=== PATIENT | female | born 1980 | race Caucasian/White ===

== ENCOUNTER 2021-05-24 03:25 | Emergency (ER) | payer SELFPAY ==
[~2021-05-24] VITALS: Ht 170.2 cm; Wt 136.1 kg
[2021-05-24] MEDS ORDERED: TETRACAINE HCL 0.5% OPTH SOLN 4 ML BTL OP ONE (04:30)
[2021-05-24] MEDS ORDERED: ONDANSETRON HCL 4 MG ORAL DISINTEGRATING TAB PO ONE (04:30)
[2021-05-24] MEDS ORDERED: FLUORESCEIN SOD(OPTH) 1 MG STRP OP ONE (04:30)
[2021-05-24] MEDS ORDERED: TETRACAINE HCL 0.5% OPTH SOLN 4 ML BTL ONE ×2 (04:39)
[2021-05-24] MEDS ORDERED: FLUORESCEIN SOD(OPTH) 1 MG STRP ONE (04:40)
[2021-05-24] MEDS ORDERED: ONDANSETRON HCL 4 MG ORAL DISINTEGRATING TAB ONE (04:41)
[2021-05-24] MEDS ORDERED: TOBRAMYCIN/DEXAMETHASONE(OPTH) 3.5 GM TUBE OP ONE (04:45)
[2021-05-24] MEDS ORDERED: HYDROCODONE/APAP 10MG-325MG TAB PO ONE (04:45)
[2021-05-24] MEDS ORDERED: TOBRAMYCIN 0.3% OPTH OINT 3.5 GM TUBE ONE (04:50)
[2021-05-24] MEDS ORDERED: ONDANSETRON ODT4 MG PO (05:02)
[2021-05-24] MEDS ORDERED: HYDROCODON-ACE1 EAC9 PO (05:02)
[2021-05-24] MEDS ORDERED: TOBRAMYCIN SULFA5 ML OP (06:21)
== END 2021-05-24 06:34 | disposition home or self-care (01) ==
LOC: ER 04:28
DX: S05.02XA Injury of conjunctiva and corneal abrasion without foreign body, left eye, initial encounter (principal); T26.02XA Burn of left eyelid and periocular area, initial encounter; W39.XXXA Discharge of firework, initial encounter
CPT/HCPCS: 70480; 99284; Q0162